=== PATIENT | female | born 1975 | race Caucasian/White ===

== ENCOUNTER 2023-06-14 16:32 | Outpatient (CLI) | payer BC ==
[~2023-06-14] VITALS: Ht 172.7 cm; Wt 81.4 kg
[2023-06-14 16:35] VITALS: BP 158/93; O2SAT 99
[2023-06-14] MEDS ORDERED: methylPREDNISolone 1,000 MG, VIAL MATE ADAPTER 1 EACH in NS 250 ML IV ONE (17:00)
[2023-06-14] MEDS ORDERED: LEVO150T7 PO (17:36)
[2023-06-14 18:20] VITALS: BP 141/80; O2SAT 99
== END 2023-06-14 18:20 | disposition home or self-care (01) ==
LOC: M INFU 16:32
PROVIDERS: ATTEND Psychiatry & Neurology Neurology
DX: G35 Multiple sclerosis (principal); Z88.3 Allergy status to other anti-infective agents
CPT/HCPCS: 96365; J2930

== ENCOUNTER 2023-06-15 16:55 | Outpatient (CLI) | payer BC, SELFPAY ==
[~2023-06-15] VITALS: Ht 172.7 cm; Wt 77.3 kg
[~2023-06-15 16:55] MED LIST: LEVO150T7 PO
[2023-06-15 17:05] VITALS: BP 154/90; O2SAT 99
[2023-06-15] MEDS ORDERED: methylPREDNISolone 1,000 MG, VIAL MATE ADAPTER 1 EACH in NS 250 ML IV ONE (17:10)
== END 2023-06-15 18:24 | disposition home or self-care (01) ==
LOC: M INFU 16:55
PROVIDERS: ATTEND Psychiatry & Neurology Neurology
DX: G35 Multiple sclerosis (principal); Z88.3 Allergy status to other anti-infective agents
CPT/HCPCS: 96365; J2930

== ENCOUNTER 2023-06-16 17:00 | Outpatient (CLI) | payer BC ==
[~2023-06-16] VITALS: Ht 172.7 cm; Wt 77.3 kg
[2023-06-16 17:05] VITALS: BP 135/78; O2SAT 96
[2023-06-16] MEDS ORDERED: methylPREDNISolone 1,000 MG, VIAL MATE ADAPTER 1 EACH in NS 250 ML IV ONE (17:10)
[2023-06-16 18:23] VITALS: BP 150/85; O2SAT 98
== END 2023-06-16 18:25 | disposition home or self-care (01) ==
LOC: M INFU 17:00
PROVIDERS: ATTEND Psychiatry & Neurology Neurology
DX: G35 Multiple sclerosis (principal); Z88.3 Allergy status to other anti-infective agents
CPT/HCPCS: 96365; J2930

== ENCOUNTER 2023-06-17 16:35 | Outpatient (CLI) | payer BC ==
[~2023-06-17] VITALS: Ht 170.2 cm; Wt 77.2 kg
[2023-06-17] MEDS ORDERED: methylPREDNISolone 1,000 MG, VIAL MATE ADAPTER 1 EACH in NS 250 ML IV ONE (16:45)
[2023-06-17 17:07] VITALS: BP 157/86; O2SAT 100
[2023-06-17 18:04] VITALS: BP 173/87; O2SAT 98
== END 2023-06-17 18:04 | disposition home or self-care (01) ==
LOC: M INFU 16:35
PROVIDERS: ATTEND Psychiatry & Neurology Neurology
DX: G35 Multiple sclerosis (principal); Z88.3 Allergy status to other anti-infective agents
CPT/HCPCS: 96365; J2930

== ENCOUNTER 2023-06-18 16:42 | Outpatient (CLI) | payer BC ==
[~2023-06-18] VITALS: Ht 172.7 cm; Wt 77.2 kg
[2023-06-18] MEDS ORDERED: methylPREDNISolone 1,000 MG, VIAL MATE ADAPTER 1 EACH in NS 250 ML IV ONE (17:00)
[2023-06-18 17:22] VITALS: BP 154/89; O2SAT 97
[2023-06-18 18:00] VITALS: BP 157/94; O2SAT 99
== END 2023-06-18 18:00 | disposition home or self-care (01) ==
LOC: M INFU 16:42
PROVIDERS: ATTEND Psychiatry & Neurology Neurology
DX: G35 Multiple sclerosis (principal); Z88.3 Allergy status to other anti-infective agents
CPT/HCPCS: 96365; J2930

== ENCOUNTER → 2024-10-25 | Outpatient (CLI) | payer OTHER ==
[~2024-10-25] MED LIST changes: +PROHANCE 279.3MG/ML 15ML VIAL ONE
== END ==
LOC: M PLAIMG 12:07
PROVIDERS: ATTEND Internal Medicine Hematology & Oncology
DX: C83.390 Primary central nervous system lymphoma (principal)